=== PATIENT | female | born 1985 ===

== ENCOUNTER 2025-07-05 12:15 | Inpatient (IN) | payer OTHER ==
[~2025-07-05] VITALS: Ht 66 cm; Wt 78.5 kg
[2025-07-07 11:02] VITALS: BP 124/76
[2025-07-10] MEDS ORDERED: CEFAZOLIN SODIUM 1,000 MG VIAL ONE (09:19)
[2025-07-10] MEDS ORDERED: POVIDONE-IODINE 118 ML BOTT TOP ONE (11:26)
[2025-07-10] MEDS ORDERED: PROMETHAZINE HCL 25 MG/ML AMPUL IV SCH (13:03)
[2025-07-10] MEDS ORDERED: MORPHINE SULFATE 4 MG/ML CARTRIDGE IV SCH (13:06)
[2025-07-10] MEDS ORDERED: CEFOXITIN SODIUM 2,000 MG in DEXTROSE 5 % IN WATER 100 ML IV SCH (13:15)
[2025-07-10] MEDS ORDERED: MORPHINE SULFATE 4 MG/ML VIAL IV ONE ×2 (13:40→14:10)
[2025-07-10 16:31] LABS: BASO % 0.1 % (0.1-1.2); EOS # 0.01 (0.04-0.54); EOS % 0.1 % (0.7-7.0); LYMPH # 0.78 (1.18-3.74); LYMPH % 6.4 % (19.3-53.1); MEAN PLATELET VOLUME 11.00 fl (9.4-12.4); MONO # 0.57 (0.24-0.82); MONO % 4.7 % (4.7-12.5); NEUT # 10.80 (1.56-6.13); NEUT % 88.3 % (34.0-71.1); RED CELL DISTRIBUTION WIDTH 12.6 % (11.6-14.4)
[2025-07-10 17:08] VITALS: BP 138/83
[2025-07-10 23:59] VITALS: BP 129/76
[2025-07-11] MEDS ORDERED: GABAPENTIN 300 MG CAPSULE PO SCH (05:00)
[2025-07-11] MEDS ORDERED: SIMETHICONE 125 MG CAPSULE PO SCH (05:00)
[2025-07-11] MEDS ORDERED: FAMOTIDINE/PF 20 MG/2 ML VIAL IV STA (07:37)
[2025-07-11 08:07] VITALS: BP 123/77
[2025-07-11 16:00] VITALS: BP 106/67
[2025-07-12] VITALS: BP 107/72
[2025-07-12] MEDS ORDERED: SIMETHICONE125 M1 PO (06:46)
[2025-07-12] MEDS ORDERED: IBUPROFEN800 MG PO (06:46)
[2025-07-12] MEDS ORDERED: MIRALAX17 GM PO (06:46)
[2025-07-12] MEDS ORDERED: GABAPENTIN300 MG PO (06:46)
[2025-07-12 08:44] VITALS: BP 100/67
== END 2025-07-12 09:25 | disposition home or self-care (01) | DRG 743 ==
LOC: O/R 07-10 07:00 → SURH 07-10 12:15 → OB/GYN 07-10 14:39 → SURH 07-10 15:30 → OB/GYN 07-12 09:25
PROVIDERS: ADMIT Obstetrics & Gynecology; ATTEND Obstetrics & Gynecology
PROC: 0UT20ZZ Resection of Bilateral Ovaries, Open Approach (ICD-10-PCS; 2025-07-10)
PROC: 0UT70ZZ Resection of Bilateral Fallopian Tubes, Open Approach (ICD-10-PCS; 2025-07-10)
PROC: 0UT90ZZ Resection of Uterus, Open Approach (ICD-10-PCS; principal; 2025-07-10 15:30)
DX: D25.1 Intramural leiomyoma of uterus (principal); N72 Inflammatory disease of cervix uteri; N80.03 Adenomyosis of the uterus; N83.12 Corpus luteum cyst of left ovary; D27.1 Benign neoplasm of left ovary